=== PATIENT | male | born 1995 | race Caucasian/White ===

== ENCOUNTER 2017-11-01 15:26 | Emergency (ER) | payer SELFPAY ==
[~2017-11-01] VITALS: Ht 177.8 cm; Wt 92.5 kg
[2017-11-01] MEDS ORDERED: OXYMETAZOLINE HCL NASAL SPRAY 15ML BOTHNSTRLS STA (18:18)
[2017-11-01 18:38] VITALS: BP 121/74
== END 2017-11-01 19:07 | disposition home or self-care (01) ==
LOC: ER 15:39
DX: S02.2XXA Fracture of nasal bones, initial encounter for closed fracture (principal); F17.200 Nicotine dependence, unspecified, uncomplicated; R03.0 Elevated blood-pressure reading, without diagnosis of hypertension; Y09 Assault by unspecified means; Y93.89 Activity, other specified; Y92.89 Other specified places as the place of occurrence of the external cause; Y99.8 Other external cause status
CPT/HCPCS: 70160; 99284